=== PATIENT | female | born 1980 | race Asian ===

== ENCOUNTER 2024-09-30 10:48 | Emergency (ER) | payer OTHER, SELFPAY ==
[2024-09-30 10:59] VITALS: BP 115/87
--- NOTE | 2024-09-30 11:19 | ED.GENMED ---
History of Present Illness
<Audi Case MD, Resident - Last Filed: 09/30/24 14:10>
General
Chief Complaint: Headache
Source: patient
Time Seen by Provider: 09/30/24 11:19
Travel History
Have you traveled to any high risk areas for coronavirus over the past 14 days?: No
Have you had any contact with someone who has COVID-19?: No
Do you have any symptoms of coronavirus? Fever > 100 degrees, chills, cough, shortness of breath, sore throat, loss of taste or smell, muscle aches, or headache?: No
History of Present Illness
History of Present Illness:
43-year-old female with PMH of vertigo with with vertigo-induced migraines who presented to the emergency department today with complaints of intermittent shooting, nonradiating, left parieto-temporal pain, left pinna pain that started 3 days ago.
Pain is rated 7/10 and last for few seconds and goes away. Pain is reproduced by touching and patient states that pain has become more constant over the past 24 to 48 hours. Patient stayed in the hotel with the the night before the onset
of her symptoms. However her does not have any of the symptoms. She also reports history of cold sores but has not had those in years. Patient stated that she recently got treatment for her vertigo as a place where daughter was at shots
so loudly and thinks her symptoms may be coming from tympanic membranes irritations. She does not have any fever, chills, headaches, vision changes, ear pain, nasal symptoms.
Patient also complains of intermittent chest pressure that lasted for about a minute before resolving. She has a history of varicose vein but does not have any chest pain, shortness of breath, or palpitations.
Past History
<Audi Case MD, Resident - Last Filed: 09/30/24 14:10>
Past History
ED Past Medical History: None
ED Past Surgical History: None
Social History
Tobacco: Non-smoker
Alcohol: None
Drug: None
Living: with family
Review of Systems
<Audi Case MD, Resident - Last Filed: 09/30/24 14:10>
Review of Systems
All Other Systems: ROS reviewed and negative except as documented in HPI and ROS
Phy Exam
<Audi Case MD, Resident - Last Filed: 09/30/24 14:10>
General Physical Exam
General Presentation: well appearing and no apparent distress
General age: appears stated age
General Skin: warm and dry
General Habitus: normal
General Mental: alert
ENT Exam
ENT Exam: EOMI, TM's normal, neck supple, normocephalic and swallowing well
Eye Exam
Eye Exam: PERRL, EOMI, cornea clear and conjunctiva normal
Cardiovascular Exam
Cardiovascular Exam: regular rate/rhythm, no edema and no JVD
Cranial
Cranial Nerves: normal and no facial asymetry
Skin Exam
Skin Exam: normal color, warm/dry and no rash
Psychiatric Exam
Psychiatric Exam: normal mood/affect
Course
<Audi Case MD, Resident - Last Filed: 09/30/24 14:10>
Orders/Labs/Results
Orders:
Orders
09/30/24 11:03
Electrocardiogram (*1) Urgent
Reason for Study: Chest Pain
EKG- Treatment ONCE
09/30/24 12:27
CT Head W/o Iv Contrast Urgent
Comment:
Reason For Exam: Headache
Vital Signs
Initial and Last Documented VS:
Initial Vital Signs
Temp Pulse Resp BP Pulse Ox
98.2 F 80 20 115/87 100
09/30/24 10:59 09/30/24 10:59 09/30/24 10:59 09/30/24 10:59 09/30/24 10:59
Last Documented Vital Signs
Temp Pulse Resp BP Pulse Ox
98.2 F 80 20 115/87 100
09/30/24 10:59 09/30/24 10:59 09/30/24 10:59 09/30/24 10:59 09/30/24 10:59
<Franklin Milian, DO - Last Filed: 09/30/24 12:56>
Orders/Labs/Results
Orders:
Orders
09/30/24 11:03
Electrocardiogram (*1) Urgent
Reason for Study: Chest Pain
EKG- Treatment ONCE
09/30/24 12:27
CT Head W/o Iv Contrast Urgent
Comment:
Reason For Exam: Headache
Vital Signs
Initial and Last Documented VS:
Initial Vital Signs
Temp Pulse Resp BP Pulse Ox
98.2 F 80 20 115/87 100
09/30/24 10:59 09/30/24 10:59 09/30/24 10:59 09/30/24 10:59 09/30/24 10:59
Last Documented Vital Signs
Temp Pulse Resp BP Pulse Ox
98.2 F 80 20 115/87 100
09/30/24 10:59 09/30/24 10:59 09/30/24 10:59 09/30/24 10:59 09/30/24 10:59
<Audi Case MD, Resident - Last Filed: 09/30/24 14:10>
MDM/Problems Addressed
Differential Diagnosis Includes:
Viral neuropathic pain, occipital neuralgia, atypical migraines
MDM/Problems Addressed:
43-year-old female with PMH of vertigo induced migraines, cold sores, who presented to the emergency department today with 3 days history of intermittent shooting pain in the left occipital/parietal region. Given patient's presentation and past
medical history, will treat with a trial of gabapentin 100 mg 3 times daily with instructions to increase to maximum 300 mg 3 times daily.
EKG done in the ED shows normal sinus rhythm with possible left atrial enlargement. There is no previous EKGs to compare.
Will get a CT head without contrast to assess for any intracranial abnormalities.
<Audi Case MD, Resident - Last Filed: 09/30/24 14:10>
*EKG
Interpreted by ED Provider?: Yes
EKG Intrepretation Date: 09/30/24
EKG Intrepretation Time: 11:03
Interpretation: abnormal (Possible left atrial enlargement)
Comparison EKG: no comparison EKG present
Heart Rate: 73
Rate: normal
Rhythm: sinus
[place]: normal axis
Interval: normal interval
QRS Pattern: normal QRS
Ischemia: no ischemia
*Critical Care Note
Total Time (30-74mins, 75-104mins- exclusive of procedures): Not Applicable
<Audi Case MD, Resident - Last Filed: 09/30/24 14:10>
Update Note
Update Note:
Head CT without IV contrast obtained in the ED was normal.
Will give a course of Neurontin 100 mg 3 times daily with instructions to take up to 300 mg 3 times daily for the next 5 days. Also sent a Medrol pack in case patient is not able to take Neurontin due to drowsiness/work.
Patient knows to return to the ED if she develops any rash.
Patient has been instructed to follow-up with his PCP within 7 days for the chronic issues.
ED Attending Note
<Audi Case MD, Resident - Last Filed: 09/30/24 14:10>
-
Portions of this chart may have been created with voice recognition software.� Occasional wrong word or��sound alike� substitutions may have occurred due to the inherent limitations of voice recognition software.
<Franklin Milian, DO - Last Filed: 09/30/24 12:56>
ED Attending Note
Patient seen and examined by attending physician: Yes
I performed a history and physical exam of patient and discussed management with resident, I reviewed resident's note and agree with documented findings and plan of care.: Yes
ED Attending Note:
Seen with resident examined independently pain behind the left ear over the mastoid no drainage no rash mild headache sharp does have a history of vertigo
Etiology not entirely clear perhaps occipital neuralgia, question early zoster without a rash,
Discharge Plan
Departure
Patient Disposition: Home (Routine Discharge)
Date of Disposition: 09/30/24
Time of Disposition: 13:42
Patient with high blood pressure during this ER visit?: No
Condition: Good
Covid-19: Not Applicable
Discharge Problem:
Neuropathic pain
Instructions: Chest Pain PCP Follow Up
Prescriptions:
New
gabapentin [Neurontin] 100 mg capsule
100 mg PO TID Qty: 15 0RF
methylprednisolone [Medrol (Srinivasa)] 4 mg tablets,dose pack
See Rx Instructions .ROUTE .COMPLEX Qty: 21 0RF
Rx Instructions:
for 6 days
No Action
hydrocodone-acetaminophen 1 TABLET tablet
1 tab PO Q4HPRN PRN (Reason: severe pain) Qty: 10 0RF
diazepam 2 MG tablet
2 mg PO TIDPRN PRN (Reason: muscle spasms) Qty: 10 0RF
Referrals:
Danilo Fernández MD [Family Provider] -
Interventions
Interventions:
*Risk Screen - Suicide Last Done: 09/30/24 10:59
*General Assessment Last Done: 09/30/24 10:59
*Neglect/Abuse Screening Last Done: 09/30/24 10:59
Discharge Date and Time
Print Language: AZERI
[2024-09-30 13:00] VITALS: BP 118/79
== END 2024-09-30 13:50 | disposition home or self-care (01) ==
LOC: EMR 10:48
PROVIDERS: EMERGENCY PHYSICIAN Emergency Medicine; FAMILY PHYSICIAN Family Medicine
DX: M79.2 Neuralgia and neuritis, unspecified (principal); R07.89 Other chest pain; R42 Dizziness and giddiness; G43.909 Migraine, unspecified, not intractable, without status migrainosus; Z88.6 Allergy status to analgesic agent; Z88.8 Allergy status to other drugs, medicaments and biological substances
CPT/HCPCS: 99284; 70450; 93005

== ENCOUNTER → 2025-01-14 13:28 | Outpatient (REF) | payer OTHER, SELFPAY | LOC: WDC 13:28 | PROVIDERS: ATTENDING PHYSICIAN Internal Medicine | DX: R92.333 Mammographic heterogeneous density, bilateral breasts (principal) | CPT/HCPCS: 76641 ==

== ENCOUNTER → 2025-07-06 07:55 | Outpatient (REF) | payer OTHER, SELFPAY | LOC: WDC 07:55 | PROVIDERS: ATTENDING PHYSICIAN Obstetrics & Gynecology; FAMILY PHYSICIAN Internal Medicine | DX: R92.8 Other abnormal and inconclusive findings on diagnostic imaging of breast (principal) | CPT/HCPCS: 76642 ==